=== PATIENT | male | born 1980 | race Caucasian/White ===

== ENCOUNTER 2016-09-13 17:57 | Emergency (ER) | payer OTHER ==
[2016-09-13 18:21] VITALS: RESP 20; O2SAT 99
--- NOTE | 2016-09-13 20:31 | C.PDOC ---
History Of Present Illness 36 yo male come in for evaluation of Left ankle pain, swelling developed 3 weeks ago after sustained twisting injury, while playing soccer. Pt admits, able to ambulate and bear weight on Left foot with moderate discomfort. Otherwise, pt denies complete fall, head injury, LOC, syncope, headache, neck pain, denies obvious deformity, weakness, sensory or vascular deficits to Left foot. Ambulate to ED, favoring Left foot. Time Seen by Provider: 09/13/16 18:16 Chief Complaint (Nursing): Lower Extremity Problem/Injury History Per: Patient Onset/Duration Of Symptoms: Gradual Current Symptoms Are (Timing): Still Present Past Medical History Reviewed: Historical Data, Nursing Documentation, Vital Signs Vital Signs: Last Vital Signs Temp 97.7 F 09/13/16 18:03 Pulse 77 09/13/16 18:03 Resp 20 09/13/16 18:03 BP 112/80 09/13/16 18:03 Pulse Ox 99 09/13/16 21:36 - Medical History PMH: No Chronic Diseases Family History: States: No Known Family Hx - Social History Hx Alcohol Use: Yes Hx Substance Use: No - Immunization History Hx Tetanus Toxoid Vaccination: No Hx Influenza Vaccination: No Hx Pneumococcal Vaccination: No Review Of Systems Except As Marked, All Systems Reviewed And Found Negative. Musculoskeletal: Positive for: Foot Pain (Left ), Other (ankle pain) Skin: Positive for: Bruising Neurological: Negative for: Weakness, Numbness Physical Exam - Physical Exam Appears: Well, Non-toxic, No Acute Distress Skin: Normal Color, Warm Head: Atraumatic, Normacephalic Eye(s): bilateral: Normal Inspection Neck: Normal, Normal ROM, No Midline Cervical Tenderness, No Paracervical Tenderness, No Step Off Deformity, Supple Chest: Symmetrical, No Deformity, No Tenderness Back: Normal Inspection, No Vertebral Tenderness, No Paraspinal Tenderness Extremity: Tenderness (Left ankle diffuse edema and trace ecchymoses. Tenderness over medial malleolus and overlying Achilles.), Capillary Refill ( less than 2sec), Swelling (left ankle), Other (Melgar sign (+) left Achilles) Neurological/Psych: Normal Motor, Normal Sensation, Normal Reflexes ED Course And Treatment O2 Sat by Pulse Oximetry: 99 Pulse Ox Interpretation: Normal - Other Rad Left ankle Interpretation: (+)widening tibfib space, ?distal tibial fx Left foot X-Ray: Interpreted by Me, Viewed By Me Interpretation: no acute fx or dislocation - CT Scan/US CT LLE ankle Other Rad Studies (CT/US): Radiology Report Reviewed CT/US Interpretation: EXAM: CT Left Lower Extremity Without Intravenous Contrast. CLINICAL HISTORY: 36 years old, male; Pain and injury or trauma; Fall; Initial encounter; Sprain or strain; Foot; Left. TECHNIQUE: Axial computed tomography images of the left lower extremity without intravenous contrast. This CT. exam was performed using one or more of the following dose reduction techniques: automated. exposure control, adjustment of the mA and/or kV according to patient size, and/or use of iterative. reconstruction technique. Coronal and sagittal reformatted images were created and reviewed. EXAM DATE/TIME: 09/13/2016 7:26 PM. COMPARISON: No relevant prior studies available. FINDINGS: Bones/joints: Moderate ankle joint narrowing. No acute fracture. No dislocation. Soft tissues: Unremarkable. IMPRESSION: No acute findings. Thank you for allowing us to participate in the care of your patient. Progress Note: Results o f xray discussed with pt and CT offered and pt agrees. Analgesics offered, pt refused at present time. Results of CT ankle review, no acute abnormalities noted. Orthoglass splint applied, crutches given. Pt advised and ref. to F/u with Ortho in 2-3 days for re-evaluation. Return to ED if any worsening or new changes. Orthopedic Time Performed: 20:37 Time Out: Side verified, Site verified, Patient ID confirmed Procedure: Splint Type: Posterior Location: Left, Leg, Foot Consent obtained: Verbal Performed by: Mid-level Provider Diagnosis: Fracture Other:: Achilles rupture Disposition Counseled Patient/Family Regarding: Studies Performed, Diagnosis, Need For Followup, Rx Given - Disposition Referrals: Jose Estrada III, MD [Staff Provider] - [facility] [place] [Outside] [facility] [Outside] Disposition: HOME/ ROUTINE Disposition Time: 20:50 Condition: STABLE Additional Instructions: Splint Take pain medication as need Follow up with Orthopedist in 2-3 days for re-evaluation. Return to ED if any worsening or new changes. Prescriptions: traMADol [Ultram] 50 mg PO TID #10 tab Instructions: Achilles Tendon Rupture (ED) - Clinical Impression Clinical Impression: Achilles rupture
[2016-09-13 22:21] VITALS: BP 100/61; PULSE 88; TEMP 98
--- NOTE | 2016-09-14 08:35 | RAD ---
PROCEDURE: Left Foot Radiographs. HISTORY: injury COMPARISON: None. FINDINGS: BONES: No evidence of acute fracture. JOINTS: Normal. SOFT TISSUES: Foci of soft tissue swelling seen adjacent to the 1st tarsometatarsal joint and anterior to the left ankle joint. The possibility of soft tissue injury should be considered. OTHER FINDINGS: None. IMPRESSION: No radiographic evidence of acute fracture or dislocation. Foci of soft tissue swelling. If clinically warranted further assessment by MRI may be obtained.
--- NOTE | 2016-09-14 10:37 | CT ---
PROCEDURE: CT of the left lower extremity without contrast. HISTORY: injury left lower leg and foot pain status post injury. COMPARISON: Comparison is made to the previous x-ray done on the same day. TECHNIQUE: Axial and reformatted coronal and sagittal CT images of the left lower extremity from the left knee to left foot were obtained without IV contrast administration. FINDINGS: No CT evidence of acute fracture or dislocation at the left tibia and fibula. No evidence of dislocation or fracture at the left knee and left ankle. No evidence of destructive bony lesion. No evidence of fluid collection or hematoma in the left leg. Mild diffuse edema seen at the distal left leg and around the left ankle and proximal left foot. IMPRESSION: No CT evidence of acute fracture or dislocation. Mild diffuse edema and subcutaneous stranding seen at the left foot left ankle and distal left leg. If clinically warranted further assessment by MRI may be obtained. Preliminary report was submitted by virtual Radiology.
--- NOTE | 2016-09-14 11:47 | RAD ---
PROCEDURE: Radiographs of the left tibia and fibula. HISTORY: injury COMPARISON: None available. TECHNIQUE: Frontal and lateral views obtained. FINDINGS: BONES: No fracture or destructive lesion. JOINT SPACES: Unremarkable. OTHER FINDINGS: None. IMPRESSION: No evidence of acute fracture or dislocation.
--- NOTE | 2016-09-14 11:47 | RAD ---
PROCEDURE: Left Ankle Radiographs. HISTORY: injury COMPARISON: None FINDINGS: BONES: Normal. No fracture. JOINTS: Normal. No osteoarthritis. Ankle mortise maintained. Talar dome intact SOFT TISSUES: Mild soft tissue swelling seen. OTHER FINDINGS: None. IMPRESSION: No radiographic evidence of acute fracture or dislocation. Mild soft tissue swelling.
== END 2016-09-13 22:21 | disposition home or self-care (01) ==
LOC: C.ER 17:57
DX: S86.012A Strain of left Achilles tendon, initial encounter (principal); X50.1XXA Overexertion from prolonged static or awkward postures, initial encounter; Y93.66 Activity, soccer; Y92.89 Other specified places as the place of occurrence of the external cause

== ENCOUNTER 2016-10-06 06:41 | Day surgery (SDC) | payer OTHER, SELFPAY ==
[2016-10-06] MEDS ORDERED: ceFAZolin 1 gm FROZEN Premix 0 ML IVPB ONE (07:50)
[2016-10-06] MEDS ORDERED: Phenylephrine 10 mg/ml Inj ONE (08:00)
[2016-10-06] MEDS ORDERED: Propofol 10 mg/ml Inj (20 ML) ONE (08:00)
[2016-10-06] MEDS ORDERED: Midazolam 2 MG/2 ML VIAL ONE (08:00)
[2016-10-06] MEDS ORDERED: Lidocaine Hydrochloride 5 ML INJ ONE (08:00)
[2016-10-06] MEDS ORDERED: Rocuronium 10 mg/ml (5 ml) ONE (08:05)
[2016-10-06] MEDS ORDERED: ceFAZolin IV 2 gm in Dextrose 50 ML IVPB ONE (08:15)
[2016-10-06] MEDS ORDERED: White Petrolatum/Mineral Oil Ophth Oint(3.5 gm) ONE (08:20)
[2016-10-06] MEDS: Bupivacaine 0.5% Inj(30mL) ONE ×2 (08:58→10:36)
[2016-10-06] MEDS ORDERED: Bacitracin 50,000 UNIT in Sodium Chloride 0.9% Irrig 1,000 ML IR SCH (09:15)
[2016-10-06] MEDS ORDERED: Neostigmine Methylsulfate 3mg/3ml Syringe IV ONE (10:15)
[2016-10-06] MEDS ORDERED: Morphine 4 MG/ML VIAL ONE (10:35)
--- NOTE | 2016-10-06 10:43 | PCM.SURG1 ---
Surgeon's Initial Post Op Note - Surgeon's Notes Surgeon: Trenton ZEE Sex Worker Or Escort: Pascale ZEE PGY3, Jackie ZEE PGY2 Type of Anesthesia: General Endo Anesthesia Administered By: DARREN Rose Pre-Operative Diagnosis: Left Lower Extremity - Achilles Tendon Rupture Operative Findings: See Dictation. Anesthesia - General. Hemostasis - Left Pneumatic Thigh Tourniquet at 350mmHg. EBL - 10mL. Materials - 2-0 Fiberwire, 2-0 Vicryl, 4-0 Vicryl, 4-0 Prolene, Xeroform, DSD, Short Leg Cast. Injectables - 10mL of 0.5% Marcaine Plain. Condition - Stable. Complications - None Post-Operative Diagnosis: Same Operation Performed: Left Lower Extremity - End-to-End Achilles tendon anastamosis. Left Lower Extremity - [place]ourney and Application of Gastrocnemius Aponeurosis Autograft Specimen/Specimens Removed: None Estimated Blood Loss: EBL {In ML}: 10 Blood Products Given: N/A Drains Used: No Drains Post-Op Condition: Good Date of Surgery/Procedure: 10/06/16 Time of Surgery/Procedure: 11:00 (In PACU)
[2016-10-06] MEDS ORDERED: Oxycodone/Acetaminophen 5/325 mg Tab PO PRN ×2 (10:45)
[2016-10-06] MEDS ORDERED: HYDROmorphone 0.5 mg/0.5 ml ISec ONE (10:56)
[2016-10-06] MEDS ORDERED: Bupivacaine 0.5% Inj(30mL) ONE (11:03)
[2016-10-06] MEDS ORDERED: HYDROmorphone 0.5 mg/0.5 ml ISec IVP PRN (11:08)
[2016-10-06] MEDS ORDERED: Lactated Ringer's 1,000 ML IV SCH (11:15)
--- NOTE | 2016-10-06 11:31 | PCM.ANESB2 ---
Popliteal Nerve Block - Popliteal Nerve Block Date of Procedure: 10/06/16 Anesthesiologist: vero Pre-Procedure Diagnosis: left achilles rupture Post-Procedure Diagnosis: repair of left achilles rupture Procedure Performed: Popliteal Nerve Block Left - Procedure Popliteal Nerve Block: This procedure was explained to the patient that it is for post-operative pain management. Consent was obtained after a thorough discussion with the patient regarding the benefits and possible complications of local anesthetic block of the sciatic nerve at the popliteal level. The patient was brought to the operating room and standard monitors are applied. Time-out was held with the circulating nurse to confirm the correct surgery and the appropriate block. After applying oxygen by nasal cannula and administering IV Sedation, patient's operative leg was gently raised and supported and the groove in between the biceps femoris and vastus lateralis muscles was carefully palpated. The skin approximately 8cm above the popliteal crease was then marked. The ultrasound transducer was then applied to the posterior thigh approximately 8cm above the popliteal crease in the transverse plane and the sciatic nerve before its division was visualized lateral to the popliteal artery and in between the bicep femoris and semimembranosus/semitendinosus muscles. After identification, the lateral portion of the thigh was prepped with Betadine solution three times and Lidocaine 1% was injected subcutaneously for topical anesthesia. At this point, a # 21 gauge Stimuplex insulated 4 inch needle was inserted into pre-marked area and advanced in a perpendicular direction. The needle was inserted above the ultrasound transducer in-plane towards the sciatic nerve in a [id number] direction. Needle advancement was performed carefully under direct ultrasound visualization. . After repeated negative aspiration, ___5__cc of __.5___ % ____bupvicaine was injected and this was flowed with ___ _25__ cc of ___.5___% ___bupivicaine . Under ultrasound guidance the local anesthetics were observed tenting the epidural sheath and surrounding the roots of the sciatic nerve. The needle was removed intact and sterile dressing was applied. The patient tolerated the popliteal nerve block well with stable vital signs and was subsequently prepared for the surgery.
[2016-10-06] MEDS ORDERED: Morphine 4 MG/ML VIAL IVP STA (11:57)
[2016-10-06 13:47] VITALS: RESP 12
[2016-10-06 16:38] VITALS: PULSE 86
[2016-10-06 16:40] VITALS: BP 132/74; TEMP 97.3; O2SAT 100
--- NOTE | 2016-10-07 17:40 | OP ---
PROCEDURE DATE: 10/06/2016 SURGEON: Elke Chowdhury DPM. DIRECTOR INFORMATION SECURITY: Dinesh Ashraf DPM, PGY-3, Juan Caceres DPM, PGY-2. INSOLE RASPER: DARREN Rose. PREOPERATIVE DIAGNOSIS: Left lower extremity traumatic Achilles tendon rupture. POSTOPERATIVE DIAGNOSIS: Left lower extremity traumatic Achilles tendon rupture. NAME OF PROCEDURE: 1. Left lower extremity End-to-End Achilles tendon anastomosis. 2. Left lower extremity gastrocnemius recession. 3. Left lower extremity harvest and application of the gastrocnemius aponeurosis autograft. INDICATIONS: This is a 36-year-old male with the aforementioned diagnosis. The patient at this time has exhausted all conservative treatment options and requests surgical intervention. The patient signed the consent form after careful explanation of all the risks, benefits, complications, and alternatives for the surgical procedure. No guarantees were made, given, or implied. PREPARATION: The patient was brought into the operating room. While on the patient's stretcher, the general anesthesia was induced and a well-padded pneumatic thigh tourniquet was placed on the patient's left thigh at upper 1/3 thigh level. After tourniquet application and induction of general anesthesia, the patient was then placed in the prone position on the operating room table. The left lower extremity was then prepped and draped in the usual sterile manner. Timeout was performed. An Esmarch was utilized to exsanguinate the left foot, ankle, and lower leg. The pneumatic thigh tourniquet was inflated to 350 mmHg and then the procedure began DESCRIPTION OF PROCEDURE: PROCEDURE #1: Attention directed to the posterior aspect of the patient's left lower extremity where an approximately 5-6 cm linear incision was made directly posterior to the patient's Achilles tendon. Prior to placing the incision the Achilles tendon was palpated and a palpable dell was felt approximately 4 cm superior to the Achilles insertion on the calcaneus. Next, after skin incision , the subcutaneous and subcuticular tissues were carefully dissected via the use of sharp and blunt dissection. Care was taken to identify and retract all vital neurovascular structures including the great saphenous vein, sural nerve and small saphenous vein. Dissection then continued down to the level of the paratenon of the Achilles tendon. Once the paratenon was encountered, a fresh # 15 blade was then utilized to make a linear incision on the posterior aspect of the peritenon. The peritenon was then carefully dissected free of its soft tissue attachments both medially and laterally, thus revealing the Achilles tendon and the concomitant rupture into the surgical field. Next, it was noted at this time that the entire aspect of the Achilles rupture was not completely visible within the surgical field. Thus, the superior portion of the incision was then extended approximately 4-5 cm superiorly. Soft tissue dissection down to the level of the Achilles occurred as previously described. Next now at the Achilles tendon and its concomitant rupture visible within the surgical field the plantaris tendon was identified and was noted to remain intact despite an Achilles tendon rupture. Next debridement of fibrotic and nonviable tissue at both ends of the Achilles rupture now occurred with the use of sharp dissection , any soft tissue specimen was then passed off the field. Next, the surgical site was irrigated with a copious amount of normal sterile saline solution mixed with 50,000 units of bacitracin. Next, the foot was now put through range of motion and forcibly plantarflexed in order to achieve end to end anastomosis of the Achilles tendon. Next, utilizing a #2-0 FiberWire suture, a Krackow style stitch was stitched within the superior portion of the Achilles tendon rupture on the medial and lateral sides of the fracture site. The same was then performed with #2-0 FiberWire suture in a Krackow style suturing technique to the inferior portion of the Achilles rupture. Next, with 2 free FiberWire strands from either end of the Achilles rupture they were both pulled taut, thus reducing the Achilles rupture and bringing the 2 ends to form an end to end anastomosis of the Achilles tendon. With the foot held in forcible plantar flexion, the strands from the medial side to the Achilles tendon were hand tied, followed by the lateral side in a similar fashion. Next, utilizing an additional piece of 2-0 FiberWire suture the end-to-end anastomosis was now reinforced and the plantaris tendon was now incorporated into our anastomosis site. Next, it was noted that the foot remained in a forcibly plantarflexed position with the Achilles tendon under greater than physiological tension. PROCEDURE #2: Since the foot was now held in a forcibly plantarflexed position , the incision to release the gastrocnemius aponeurosis was now made. Our incision was now extended superiorly by proximally 10 cm, approximately to the level of the gastrocnemius aponeurosis and muscle belly junction. The incision was deepened to the subcutaneous tissues utilizing combination of sharp and blunt dissection with care being taken to again identify and retract all vital neurovascular structures including the sural nerve and the large veins of the posterior leg. Next, at the level approximately 15 cm superior to the Achilles insertion on the calcaneus, the gastrocnemius aponeurosis was now severed in a medial to lateral fashion again with careful attention being paid to keep the neurovascular structures out of surgical field. Upon completion of tenotomizing the gastrocnemius aponeurosis, the foot was noted to no longer be held in a forcibly plantarflexed position. The foot was then put through range of motion and the range of motion was noted to be adequate with the Achilles tendon and its repair holding and under an appropriate physiological tension. Next, the entire surgical site was now irrigated again with a copious amount of normal sterile saline solution. PROCEDURE #3: Next our attention now directed to the superior aspect of the gastrocnemius aponeurosis. Within the central portion of the gastrocnemius aponeurosis an approximately 5 x 1.5 cm piece of aponeurosis was excised. This piece of aponeurosis was placed now in normal sterile saline solution for later use. Next, the surgical site was irrigated again with normal sterile saline solution and the gastrocnemius aponeurosis was repaired in a linear fashion with utilizing Vicryl suture in a running fashion. Next, the piece of gastrocnemius aponeurosis autograft was now taken and placed over the end to end anastomosis site for the Achilles tendon rupture. Careful attention was ensured to make sure that the autograft with its muscular attachments faced and came in contact with the end to end repair of the Achilles tendon. The smooth glistening posterior portion of the aponeurosis remained visible after the graft application. Next, utilizing #4-0 Vicryl suture the 4 corners of the gastrocnemius aponeurosis autograft were now tacked down in a simple interrupted fashion. Next again utilizing 4-0 Vicryl suture in a running fashion, the autograft was now secured to the Achilles end to end anastomosis site. Next, the foot was now again put through range of motion and it was noted that the repair held and the autograft did not displace. Next, the entire surgical site was now irrigated with a copious amount of normal sterile saline solution. The peritenon tissues were now reapproximated with 4-0 Vicryl suture. The subcutaneous tissue was then reapproximated with #3-0 Vicryl suture and then the subcuticular tissue was reapproximated #4-0 Vicryl suture. The skin was then reapproximated with #4-0 Prolene suture in an alternating simple interrupted and interrupted horizontal mattress fashion. Next, the patient received a postoperative injection consisting of 10 mL of 0.5% Marcaine plain in the form of a sural nerve block at the superior portion of the leg. Next, the surgical site was now cleansed and dried. Xeroform was now applied over the surgical incision, followed by dry sterile dressing, followed by a standard short leg cast. The pneumatic thigh tourniquet was deflated and removed. POSTOPERATIVE CONDITION: The patient tolerated the anesthesia and the procedure well and was escorted to the recovery room with his vital signs stable and his neuro dressed status intact to the left foot as noted instantaneous hyperemic to all 5 digits of the left foot. While in the PACU, the patient's cast will be bivalved and Adolfo wraps will be applied. The patient will be nonweightbearing to left lower extremity. The patient will follow up with Dr. Chowdhury in the [facility] podiatry clinic next week. Dinesh Ashraf DPM Elke Chowdhury DPM cc: [id number] TT: 10/07/2016 17:39:15 jn MTDD
== END 2016-10-06 16:35 | disposition home or self-care (01) ==
LOC: C.SDS 06:41
PROVIDERS: ATTEND Podiatrist Foot & Ankle Surgery
DX: S86.012A Strain of left Achilles tendon, initial encounter (principal); X58.XXXA Exposure to other specified factors, initial encounter; Y92.9 Unspecified place or not applicable
CPT/HCPCS: 27687; 27700; J0690; J1170; J1885; J2250; J2270; J2370; J2405; J2704; J2710; J3010